=== PATIENT | female | born 1970 | race Caucasian/White ===

== ENCOUNTER 2017-07-16 05:35 | Emergency (ER) | payer BC, OTHER ==
[~2017-07-16] VITALS: Ht 172.7 cm; Wt 154.2 kg
[~2017-07-16 05:35] MED LIST: ALBIPROI INH; ALBU.083IS; ALBU3IS INH; ALBU90I INH; ASPI81CH PO; AZIT250 PO; BUDE6HFA INH; CEPH500 PO; CETI5 PO; CRUTCH4 USE; DULERA 200 MCG/13 GM INH; Duoneb 2.5-0.5 M3 ML INH; ERGO50000 PO; ESOM20 PO; ESOMEPRAZOLE MA40 MG PO; FENO145 PO; FENO48 PO; FLUSAL5005; FLUT.05NI; Flonase 0.05% N16 GM; HYDACE5 PO; LEVFLO500 PO; LORA1 PO; LORA10ER PO; LOVA20; META800 PO; MOMENI; MONT10T PO; NAPR220 PO; NEBI5 PO; Norco 5-325 Ta1 EACH PO; OFLO.3OPSO OP; OMEP10ER PO; PRED10 PO; PRED20 PO; Percocet 5-3251 EACH PO; Prednisone10 MG PO; Prednisone20 MG PO; RXCODGUASY PO; RXPRED10; XOLAIR IM; Zofran Odt4 MG SL
[2017-07-16] MEDS ORDERED: METF500 PO (05:49)
[2017-07-16] MEDS ORDERED: Zithromax250 MG PO (06:18)
[2017-07-16] MEDS ORDERED: Prednisone20 MG PO (06:18)
== END 2017-07-16 07:04 | disposition home or self-care (01) ==
LOC: ER 05:35
DX: J45.901 Unspecified asthma with (acute) exacerbation (principal); Z88.5 Allergy status to narcotic agent; Z88.8 Allergy status to other drugs, medicaments and biological substances; Z88.0 Allergy status to penicillin; Z79.899 Other long term (current) drug therapy; Z79.84 Long term (current) use of oral hypoglycemic drugs; Z79.82 Long term (current) use of aspirin; J45.909 Unspecified asthma, uncomplicated; E78.5 Hyperlipidemia, unspecified; K21.9 Gastro-esophageal reflux disease without esophagitis; Z87.891 Personal history of nicotine dependence
CPT/HCPCS: 71046; 93005; 93010; 94640; 99283

== ENCOUNTER 2018-06-11 09:46 | Emergency (ER) | payer BC ==
[~2018-06-11] VITALS: Ht 172.7 cm; Wt 163.3 kg
[~2018-06-11 09:46] MED LIST changes: +METF500 PO; +Zithromax250 MG PO
[2018-06-11] MEDS ORDERED: LEVO750 PO (10:04)
[2018-06-11] MEDS ORDERED: INVOKANA300 MG PO (10:04)
[2018-06-11] MEDS ORDERED: Xolair150 MG SQ (10:04)
[2018-06-11 10:58] LABS: Influenza A Positive (NEGATIVE); Influenza B Negative (NEGATIVE)
[2018-06-11] MEDS ORDERED: BENZ100A PO (11:15)
[2018-06-11] MEDS ORDERED: Tamiflu75 MG PO (11:15)
== END 2018-06-11 11:20 | disposition home or self-care (01) ==
LOC: ER 09:46
PROVIDERS: Physician Assistant
DX: J10.1 Influenza due to other identified influenza virus with other respiratory manifestations (principal); J45.909 Unspecified asthma, uncomplicated; E78.5 Hyperlipidemia, unspecified; K21.9 Gastro-esophageal reflux disease without esophagitis; I48.91 Unspecified atrial fibrillation; Z88.5 Allergy status to narcotic agent; Z88.8 Allergy status to other drugs, medicaments and biological substances; Z88.0 Allergy status to penicillin; Z91.09 Other allergy status, other than to drugs and biological substances; Z79.899 Other long term (current) drug therapy; Z79.82 Long term (current) use of aspirin; Z79.84 Long term (current) use of oral hypoglycemic drugs; Z79.52 Long term (current) use of systemic steroids; Z87.891 Personal history of nicotine dependence
CPT/HCPCS: 87804; 99283

== ENCOUNTER 2018-09-06 18:52 | Emergency (ER) | payer BC ==
[~2018-09-06] VITALS: Ht 172.7 cm; Wt 158.8 kg
[~2018-09-06 18:52] MED LIST changes: +BENZ100A PO; +INVOKANA300 MG PO; +LEVO750 PO; +Tamiflu75 MG PO; +Xolair150 MG SQ
== END 2018-09-06 21:32 | disposition home or self-care (01) ==
LOC: ER 18:52
DX: M25.512 Pain in left shoulder (principal); Z88.5 Allergy status to narcotic agent; Z88.8 Allergy status to other drugs, medicaments and biological substances; Z88.0 Allergy status to penicillin; Z79.899 Other long term (current) drug therapy; Z79.82 Long term (current) use of aspirin; Z79.84 Long term (current) use of oral hypoglycemic drugs; J45.909 Unspecified asthma, uncomplicated; E78.5 Hyperlipidemia, unspecified; K21.9 Gastro-esophageal reflux disease without esophagitis; Z87.891 Personal history of nicotine dependence
CPT/HCPCS: 73030; 99283-25; A9270-GY

== ENCOUNTER 2018-12-10 21:29 | Emergency (ER) | payer BC, OTHER ==
[~2018-12-10] VITALS: Ht 172.7 cm; Wt 163.3 kg
[2018-12-11] MEDS ORDERED: CEPH500 PO (01:10)
[2018-12-11] MEDS ORDERED: Bactrim Ds Tab1 EACH PO (01:10)
== END 2018-12-11 01:15 | disposition home or self-care (01) ==
LOC: ER 21:29
DX: L03.115 Cellulitis of right lower limb (principal); J45.909 Unspecified asthma, uncomplicated; I47.1 Supraventricular tachycardia; I48.91 Unspecified atrial fibrillation; K21.9 Gastro-esophageal reflux disease without esophagitis; Z88.5 Allergy status to narcotic agent; Z88.0 Allergy status to penicillin; Z88.8 Allergy status to other drugs, medicaments and biological substances; Z91.048 Other nonmedicinal substance allergy status; Z79.899 Other long term (current) drug therapy
CPT/HCPCS: 93971; 99283-25

== ENCOUNTER 2020-01-01 11:13 | Emergency (ER) | payer BC ==
[~2020-01-01] VITALS: Ht 172.7 cm; Wt 167.8 kg
[~2020-01-01 11:13] MED LIST changes: +Bactrim Ds Tab1 EACH PO
[2020-01-01] MEDS ORDERED: Cyclobenzaprine5 MG PO (12:31)
[2020-01-01] MEDS ORDERED: HYDR1TAB94 PO (12:31)
== END 2020-01-01 12:40 | disposition home or self-care (01) ==
LOC: ER 11:13
DX: M54.5 Low back pain (principal); Z88.0 Allergy status to penicillin; Z88.5 Allergy status to narcotic agent; Z91.09 Other allergy status, other than to drugs and biological substances; Z88.8 Allergy status to other drugs, medicaments and biological substances; Z79.899 Other long term (current) drug therapy; Z79.82 Long term (current) use of aspirin; Z79.2 Long term (current) use of antibiotics; I10 Essential (primary) hypertension; I48.91 Unspecified atrial fibrillation; I47.1 Supraventricular tachycardia; E78.5 Hyperlipidemia, unspecified; Z87.891 Personal history of nicotine dependence
CPT/HCPCS: 99283

== ENCOUNTER 2020-10-01 05:09 | Emergency (ER) | payer BC ==
[~2020-10-01] VITALS: Ht 172.7 cm; Wt 163.3 kg
[~2020-10-01 05:09] MED LIST changes: +Cyclobenzaprine5 MG PO; +HYDR1TAB94 PO
[2020-10-01] MEDS ORDERED: Cyclobenzaprine5 MG PO (07:30)
[2020-10-01] MEDS ORDERED: IBUP400 PO (07:30)
== END 2020-10-01 07:46 | disposition home or self-care (01) ==
LOC: ER 05:09
DX: M25.511 Pain in right shoulder (principal); K21.9 Gastro-esophageal reflux disease without esophagitis; E78.5 Hyperlipidemia, unspecified; I10 Essential (primary) hypertension; Z88.5 Allergy status to narcotic agent; Z88.0 Allergy status to penicillin; Z88.8 Allergy status to other drugs, medicaments and biological substances; Z79.899 Other long term (current) drug therapy; Z87.891 Personal history of nicotine dependence
CPT/HCPCS: 73030; 96372; 99283-25; J1885

== ENCOUNTER 2022-12-11 22:58 | Emergency (ER) | payer BC ==
[~2022-12-11] VITALS: Ht 172.7 cm; Wt 169.6 kg
[~2022-12-11 22:58] MED LIST changes: +IBUP400 PO
[2022-12-12 02:15] VITALS: BP 157/103
== END 2022-12-12 02:25 | disposition home or self-care (01) ==
LOC: ER 22:58
DX: R00.1 Bradycardia, unspecified (principal); I49.1 Atrial premature depolarization; R00.2 Palpitations; U07.1 COVID-19; J45.909 Unspecified asthma, uncomplicated; Z88.5 Allergy status to narcotic agent; Z88.0 Allergy status to penicillin; Z88.8 Allergy status to other drugs, medicaments and biological substances; Z91.048 Other nonmedicinal substance allergy status; Z79.899 Other long term (current) drug therapy; Z79.82 Long term (current) use of aspirin; Z87.891 Personal history of nicotine dependence
CPT/HCPCS: 93005; 93010; 99284-25

== ENCOUNTER 2024-10-29 03:39 | Emergency (ER) | payer BC ==
[~2024-10-29] VITALS: Ht 172.7 cm; Wt 152.9 kg
[2024-10-29] MEDS ORDERED: Diltiazem HCl 5 MG / ML 5ML Vial IV ONE ×2 (03:55→04:10)
[2024-10-29 03:59] LABS: BASOPHILS ABSOLUTE AUTO 0.03 K/mm3 (0.00-0.23); BASOPHILS PERCENT AUTO 0 % (0-2); EOSINOPHILS ABSOLUTE AUTO 0.02 K/mm3 (0.00-0.68); EOSINOPHILS PERCENT AUTO 0 % (0-6); Hematocrit 47.3 % (33.0-51.0); Hemoglobin 15.6 g/dL (11.5-16.0); IMMATURE GRAN ABSOLUTE AUTO 0.04 K/mm3 (0.00-0.10); IMMATURE GRAN PERCENT AUTO 0 % (0-1); LYMPHOCYTES ABSOLUTE AUTO 2.35 K/mm3 (0.84-5.20); LYMPHOCYTES PERCENT AUTO 22 % (21-46); MONOCYTES ABSOLUTE AUTO 0.55 K/mm3 (0.16-1.47); MONOCYTES PERCENT AUTO 5 % (4-13); Mean Corpuscular HGB 29.1 pg (26.0-34.0); Mean Corpuscular Volume 88 fL (80-100); Mean Platelet Volume 9.9 fL (9.1-12.4); NEUTROPHILS ABSOLUTE AUTO 7.75 K/mm3 (1.96-9.15); NEUTROPHILS PERCENT AUTO 72 % (41-73); Platelet Count 330 K/mm3 (150-400); RDW Coefficient Variation 13.6 % (11.7-14.2); RDW Standard Deviation 43.9 fL (35.1-46.3); Red Blood Cell Count 5.36 M/mm3 (3.80-5.20); White Blood Cell Count 10.74 K/mm3 (4.00-11.30)
[2024-10-29 04:15] VITALS: BP 137/94
[2024-10-29] MEDS ORDERED: NS 1,000 ML IV SCH (04:40)
[2024-10-29 05:13] LABS: Albumin, Blood 4.1 g/dL (3.4-5.0); Bilirubin, Total 0.5 mg/dL (0.1-1.0); Bun/Creatinine Ratio 25.8 (12.0-20.0); Calcium, Blood 9.4 mg/dL (8.5-10.1); Creatinine, Blood 0.81 mg/dL (0.40-1.00); Globulin, Blood 4.2 g/dL (2.2-4.0); Potassium, Blood 3.8 mmol/L (3.5-5.5); Total Protein, Blood 8.3 g/dL (6.4-8.2)
== END 2024-10-29 05:31 | disposition home or self-care (01) ==
LOC: ER 03:39
PROVIDERS: Emergency Medicine
DX: I48.0 Paroxysmal atrial fibrillation (principal); J45.909 Unspecified asthma, uncomplicated; K21.9 Gastro-esophageal reflux disease without esophagitis; E78.5 Hyperlipidemia, unspecified; I10 Essential (primary) hypertension; Z87.891 Personal history of nicotine dependence; Z79.82 Long term (current) use of aspirin; Z79.84 Long term (current) use of oral hypoglycemic drugs; Z88.5 Allergy status to narcotic agent; Z88.0 Allergy status to penicillin; Z88.8 Allergy status to other drugs, medicaments and biological substances; Z91.041 Radiographic dye allergy status
CPT/HCPCS: 71045; 80053; 83880; 84484; 85025; 93005; 93010; 96374; 99285-25; J7030